=== PATIENT | female | born 1930 | race Caucasian/White ===

== ENCOUNTER → 2016-10-20 | Outpatient (REF) | payer MEDICARE ==
[~2016-10-20] MED LIST: /WARF2TA PO; CALC600T7 PO; FERR325T3 PO; LANO0.252 OR; MULTTAB4 PO; OSTETAB3 PO; PERCOCET PO; SODIGEL; TYLE325T5 PO; [UNRECOGNIZED DRUG - REMARK] OU
[2016-10-20 18:20] LABS: INR 1.69
[2016-10-20 19:53] LABS: DIGOXIN LEVEL 0.6 NG/ML (0.5-2.0)
== END ==
LOC: M LAB REF 16:45
PROVIDERS: ATTEND Internal Medicine
DX: I48.2 Chronic atrial fibrillation (principal); B18.2 Chronic viral hepatitis C; K74.60 Unspecified cirrhosis of liver; Z79.01 Long term (current) use of anticoagulants

== ENCOUNTER → 2017-04-27 | Outpatient (REF) | payer MEDICARE ==
[2017-04-27 19:06] LABS: DIGOXIN LEVEL 0.5 NG/ML (0.5-2.0)
[2017-04-27 19:25] LABS: INR 1.18
== END ==
LOC: M LAB REF 17:13
PROVIDERS: ATTEND Internal Medicine
DX: K74.60 Unspecified cirrhosis of liver (principal)

== ENCOUNTER → 2017-05-25 | Outpatient (REF) | payer MEDICARE | LOC: M LAB REF 12:29 | PROVIDERS: ATTEND Surgery | DX: I87.311 Chronic venous hypertension (idiopathic) with ulcer of right lower extremity (principal); L97.812 Non-pressure chronic ulcer of other part of right lower leg with fat layer exposed; B95.61 Methicillin susceptible Staphylococcus aureus infection as the cause of diseases classified elsewhere ==

== ENCOUNTER → 2017-05-25 | Outpatient (CLI) | payer MEDICARE | LOC: M LAB 11:14 | PROVIDERS: ATTEND Internal Medicine | DX: E03.9 Hypothyroidism, unspecified (principal) ==

== ENCOUNTER → 2017-06-09 | Outpatient (REF) | payer MEDICARE ==
[2017-06-09 16:52] LABS: MEAN CORPUSCULAR HEMOGLOBIN 30.9 pg (27.0-33.0); MEAN CORPUSCULAR VOLUME 93.6 fl (80.0-96.0); PLATELET COUNT, AUTOMATED 166 10^3/uL (150-450); RED CELL DISTRIBUTION WIDTH 14.7 % (11.5-14.5); WHITE BLOOD COUNT 4.8 10^3/uL (4.0-10.0)
[2017-06-09 18:22] LABS: ALBUMIN 3.1 GM/DL (3.2-5.2); ALKALINE PHOSPHATASE 123 U/L (45-117); ALT/SGPT 74 U/L (12-78); ANION GAP 6 MEQ/L (8-16); AST/SGOT 102 U/L (7-37); BILIRUBIN,TOTAL 0.7 MG/DL (0.2-1.0); BLOOD UREA NITROGEN 15 MG/DL (7-18); CALCIUM LEVEL 8.3 MG/DL (8.8-10.2); CARBON DIOXIDE LEVEL 29 MEQ/L (21-32); CHLORIDE LEVEL 105 MEQ/L (98-107); CREATININE FOR GFR 0.27 MG/DL (0.55-1.02); GLOMERULAR FILTRATION RATE > 60.0 (>32); GLUCOSE, FASTING 109 MG/DL (83-110); POTASSIUM SERUM 4.1 MEQ/L (3.5-5.1); SODIUM LEVEL 140 MEQ/L (136-145); TOTAL PROTEIN 6.2 GM/DL (6.4-8.2)
[2017-06-09 19:01] LABS: ERYTHROCYTE SEDIMENTATION RATE 1 mm/hr (0-42)
== END ==
LOC: M LAB REF 16:16
PROVIDERS: ATTEND Surgery
DX: I87.311 Chronic venous hypertension (idiopathic) with ulcer of right lower extremity (principal); L97.812 Non-pressure chronic ulcer of other part of right lower leg with fat layer exposed

== ENCOUNTER → 2017-07-06 | Outpatient (REF) | payer MEDICARE ==
[2017-07-06 18:23] LABS: BLOOD UREA NITROGEN 12 MG/DL (7-18)
[2017-07-06 18:23] LABS: CREATININE FOR GFR 0.19 MG/DL (0.55-1.02); GLOMERULAR FILTRATION RATE > 60.0 (>32)
== END ==
LOC: M LAB REF 16:37
DX: L97.812 Non-pressure chronic ulcer of other part of right lower leg with fat layer exposed (principal)
CPT/HCPCS: 82565

== ENCOUNTER → 2017-07-13 | Outpatient (CLI) | payer MEDICARE ==
[~2017-07-13] MED LIST changes: -/WARF2TA PO; -CALC600T7 PO; -FERR325T3 PO; -LANO0.252 OR; -MULTTAB4 PO; -OSTETAB3 PO; -PERCOCET PO; +PROHANCE 279.3MG/ML 5ML VIAL (A9576) As Ordered; -SODIGEL; -TYLE325T5 PO; -[UNRECOGNIZED DRUG - REMARK] OU
== END ==
LOC: M RAD 11:35
DX: I87.311 Chronic venous hypertension (idiopathic) with ulcer of right lower extremity (principal); L97.812 Non-pressure chronic ulcer of other part of right lower leg with fat layer exposed; L03.115 Cellulitis of right lower limb; R93.8 Abnormal findings on diagnostic imaging of other specified body structures
CPT/HCPCS: A9576

== ENCOUNTER → 2017-10-26 | Outpatient (REF) | payer MEDICARE ==
[2017-10-26 17:25] LABS: PROTHROMBIN TIME 14.4 SECONDS (12.4-14.5)
[2017-10-26 17:26] LABS: PARTIAL THROMBOPLASTIN TIME 28.3 SECONDS (26.8-37.9)
[2017-10-26 17:51] LABS: DIGOXIN LEVEL 0.6 NG/ML (0.5-2.0)
[2017-10-27 10:40] LABS: ALPHA FETOPROTEIN TUMOR QUANT 10.3 NG/ML (<8.1)
== END ==
LOC: M LAB REF 16:43
DX: I48.2 Chronic atrial fibrillation (principal); K74.60 Unspecified cirrhosis of liver; B18.2 Chronic viral hepatitis C
CPT/HCPCS: 80162

== ENCOUNTER → 2017-11-16 | Outpatient (CLI) | payer MEDICARE | LOC: M RAD 10:28 | DX: B18.2 Chronic viral hepatitis C (principal); K74.60 Unspecified cirrhosis of liver | CPT/HCPCS: 76705 ==

== ENCOUNTER → 2018-05-10 | Outpatient (REF) | payer MEDICARE ==
[2018-05-10 17:47] LABS: INR 1.02; PROTHROMBIN TIME 13.5 SECONDS (12.1-14.4)
[2018-05-10 17:48] LABS: PARTIAL THROMBOPLASTIN TIME 28.2 SECONDS (25.4-37.6)
[2018-05-10 18:04] LABS: DIGOXIN LEVEL 0.7 NG/ML (0.5-2.0)
[2018-05-11 09:39] LABS: ALPHA FETOPROTEIN TUMOR QUANT 12.7 NG/ML (<8.1)
== END ==
LOC: M LAB REF 16:48
DX: I48.2 Chronic atrial fibrillation (principal); K74.60 Unspecified cirrhosis of liver
CPT/HCPCS: 80162

== ENCOUNTER → 2018-05-25 | Outpatient (REF) | payer MEDICARE ==
[~2018-05-25] MED LIST changes: +/WARF2TA PO; +CALC600T7 PO; +FERR325T3 PO; +LANO0.252 OR; +MULTTAB4 PO; +OSTETAB3 PO; +PERCOCET PO; -PROHANCE 279.3MG/ML 5ML VIAL (A9576) As Ordered; +SODIGEL; +TYLE325T5 PO; +[UNRECOGNIZED DRUG - REMARK] OU
== END ==
LOC: M LAB REF 19:18
PROVIDERS: ATTEND Surgery
DX: L89.324 Pressure ulcer of left buttock, stage 4 (principal)

== ENCOUNTER → 2018-07-01 | Outpatient (REF) | payer MEDICARE ==
[2018-07-01 16:48] LABS: ALBUMIN 2.2 GM/DL (3.2-5.2); ALT/SGPT 23 U/L (12-78); BILIRUBIN,DIRECT 0.3 MG/DL (0.0-0.2); BILIRUBIN,TOTAL 0.4 MG/DL (0.2-1.0); BLOOD UREA NITROGEN 15 MG/DL (7-18); C REACTIVE PROTEIN QUANTITATIV 1.23 MG/DL (0.00-0.30); CALCIUM LEVEL 7.6 MG/DL (8.8-10.2); CARBON DIOXIDE LEVEL 28 MEQ/L (21-32); CHLORIDE LEVEL 104 MEQ/L (98-107); CREATININE FOR GFR 0.17 MG/DL (0.55-1.30); GLOMERULAR FILTRATION RATE > 60.0 (>32); GLUCOSE, FASTING 101 MG/DL (70-100); POTASSIUM SERUM 4.1 MEQ/L (3.5-5.1); SODIUM LEVEL 137 MEQ/L (136-145); TOTAL PROTEIN 5.1 GM/DL (6.4-8.2)
[2018-07-01 16:58] LABS: BASO % 0.4 % (0.0-1.0); EOS # 0.1 10^3/uL (0.0-0.50); EOS % 0.9 % (0.0-3.0); HEMATOCRIT 37.6 % (36.0-47.0); HEMOGLOBIN 12.1 g/dl (12.0-15.5); LYMPH # 1.4 10^3/uL (1.5-4.5); LYMPH % 17.9 % (24.0-44.0); MEAN CORPUSCULAR HEMOGLOBIN 28.7 pg (27.0-33.0); MEAN CORPUSCULAR HGB CONC 32.2 g/dl (32.0-36.5); MEAN CORPUSCULAR VOLUME 89.3 fl (80.0-96.0); MONO # 0.7 10^3/uL (0.0-0.8); NEUTROPHILS # 5.5 10^3/uL (1.8-7.7); NEUTROPHILS % 71.4 % (36.0-66.0); PLATELET COUNT, AUTOMATED 280 10^3/uL (150-450); RED BLOOD COUNT 4.21 10^6/uL (4.00-5.40); WHITE BLOOD COUNT 7.7 10^3/uL (4.0-10.0)
[2018-07-01 18:20] LABS: ERYTHROCYTE SEDIMENTATION RATE 15 mm/hr (0-42)
== END ==
LOC: M LAB REF 16:14
PROVIDERS: ATTEND Internal Medicine
DX: R50.9 Fever, unspecified (principal)

== ENCOUNTER → 2018-07-02 | Outpatient (REF) | payer MEDICARE | LOC: M LAB REF 17:08 | PROVIDERS: ATTEND Internal Medicine | DX: R50.9 Fever, unspecified (principal) ==

== ENCOUNTER → 2018-07-05 | Outpatient (REF) | payer MEDICARE | LOC: M LAB REF 18:31 | PROVIDERS: ATTEND Surgery | DX: L89.514 Pressure ulcer of right ankle, stage 4 (principal) | CPT/HCPCS: 11042; 11044; 11047; 80053; 85025; 85652; 86140; 87040; 87070; 87077; 87186; G0463 ==

== ENCOUNTER → 2018-07-05 | Outpatient (REF) | payer MEDICARE ==
[2018-07-05 17:17] LABS: BASO % 0.4 % (0.0-1.0); EOS # 0.1 10^3/uL (0.0-0.50); EOS % 1.3 % (0.0-3.0); HEMATOCRIT 41.2 % (36.0-47.0); HEMOGLOBIN 13.2 g/dl (12.0-15.5); LYMPH # 1.5 10^3/uL (1.5-4.5); LYMPH % 21.4 % (24.0-44.0); MEAN CORPUSCULAR HEMOGLOBIN 28.8 pg (27.0-33.0); MONO # 0.6 10^3/uL (0.0-0.8); MONO % 8.5 % (0.0-5.0); NEUTROPHILS # 4.8 10^3/uL (1.8-7.7); NEUTROPHILS % 68.1 % (36.0-66.0); PLATELET COUNT, AUTOMATED 313 10^3/uL (150-450); RED BLOOD COUNT 4.58 10^6/uL (4.00-5.40); WHITE BLOOD COUNT 7.1 10^3/uL (4.0-10.0)
[2018-07-05 17:19] LABS: C REACTIVE PROTEIN QUANTITATIV 1.08 MG/DL (0.00-0.30)
[2018-07-05 18:02] LABS: ERYTHROCYTE SEDIMENTATION RATE 15 mm/hr (0-42)
[2018-07-06 13:54] LABS: ALBUMIN 2.5 GM/DL (3.2-5.2); ALT/SGPT 25 U/L (12-78); BILIRUBIN,TOTAL 0.6 MG/DL (0.2-1.0); BLOOD UREA NITROGEN 11 MG/DL (7-18); CALCIUM LEVEL 8.2 MG/DL (8.8-10.2); CARBON DIOXIDE LEVEL 26 MEQ/L (21-32); CHLORIDE LEVEL 103 MEQ/L (98-107); CREATININE FOR GFR 0.18 MG/DL (0.55-1.30); GLOMERULAR FILTRATION RATE > 60.0 (>32); GLUCOSE, FASTING 84 MG/DL (70-100); POTASSIUM SERUM 4.1 MEQ/L (3.5-5.1); SODIUM LEVEL 139 MEQ/L (136-145); TOTAL PROTEIN 6.2 GM/DL (6.4-8.2)
== END ==
LOC: M SFHCPLAZ 14:13
PROVIDERS: ATTEND Internal Medicine Infectious Disease
DX: L89.514 Pressure ulcer of right ankle, stage 4 (principal)

== ENCOUNTER → 2018-07-12 | Outpatient (CLI) | payer MEDICARE ==
[~2018-07-12] MED LIST changes: +PROHANCE 279.3MG/ML 5ML VIAL (A9576) As Ordered ONE
--- NOTE | 2018-07-12 10:20 | REP ---
MRI RIGHT FOOT WITH AND WITHOUT CONTRAST: Multiple sequences obtained in the axial, coronal and sagittal planes, prior to and following the intravenous administration of 10 mL ProHance. There is low signal on T1 and high signal on T2 in the medial malleolus, distal fibula, talus, calcaneus, navicular, cuboid and lateral cuneiform bones. These areas demonstrate ill-defined enhancement following the intravenous administration of gadolinium. There appear to be adjacent skin ulcerations dorsolaterally. Findings are suspicious for osteomyelitis, although posttraumatic or arthritic changes could also cause this appearance. Similar findings are seen in the head of the 1st metatarsal. There is ill-defined soft tissue edema in the hind foot again predominantly dorsal laterally with ill-defined soft tissue enhancement compatible with cellulitis. No focal fluid collection, joint effusion or abscess is seen. IMPRESSION: Abnormal signal enhancement of the distal fibula, medial malleolus, talus, calcaneus, navicular, cuboid, lateral cuneiform and head of 1st metatarsal. Findings are most consistent with osteomyelitis, although posttraumatic or arthritic change could also contribute to this appearance. There are findings compatible with cellulitis predominantly in the hind foot dorsal laterally. No abscess is seen. Electronically Signed by Felton Pantoja MD 07/12/2018 04:46 P
== END ==
LOC: M RAD 07:05
PROVIDERS: ATTEND Internal Medicine Infectious Disease
DX: L89.514 Pressure ulcer of right ankle, stage 4 (principal)
CPT/HCPCS: 11042; 11043; 11044; 15271; 73720; A9576; Q4186

== ENCOUNTER → 2018-07-20 | Outpatient (REF) | payer MEDICARE ==
[~2018-07-20] MED LIST changes: -PROHANCE 279.3MG/ML 5ML VIAL (A9576) As Ordered ONE
[2018-07-20 19:06] LABS: BASO % 0.9 % (0.0-1.0); EOS # 0.2 10^3/uL (0.0-0.50); EOS % 3.5 % (0.0-3.0); HEMATOCRIT 37.5 % (36.0-47.0); LYMPH # 1.9 10^3/uL (1.5-4.5); LYMPH % 40.7 % (24.0-44.0); MEAN CORPUSCULAR HEMOGLOBIN 28.4 pg (27.0-33.0); MEAN CORPUSCULAR VOLUME 88.9 fl (80.0-96.0); MONO # 0.5 10^3/uL (0.0-0.8); MONO % 9.8 % (0.0-5.0); NEUTROPHILS # 2.1 10^3/uL (1.8-7.7); NEUTROPHILS % 44.9 % (36.0-66.0); PLATELET COUNT, AUTOMATED 250 10^3/uL (150-450); RED BLOOD COUNT 4.22 10^6/uL (4.00-5.40); WHITE BLOOD COUNT 4.6 10^3/uL (4.0-10.0)
[2018-07-20 19:37] LABS: ERYTHROCYTE SEDIMENTATION RATE 8 mm/hr (0-42)
== END ==
LOC: M LAB REF 18:15
PROVIDERS: ATTEND Surgery
DX: L89.324 Pressure ulcer of left buttock, stage 4 (principal)

== ENCOUNTER → 2018-08-02 | Outpatient (CLI) | payer MEDICARE | LOC: M RAD 10:37 | PROVIDERS: ATTEND Internal Medicine Infectious Disease | DX: R50.9 Fever, unspecified (principal); L89.152 Pressure ulcer of sacral region, stage 2; Z53.8 Procedure and treatment not carried out for other reasons ==

== ENCOUNTER → 2018-08-20 | Outpatient (REF) | payer MEDICARE ==
[2018-08-20 18:51] LABS: HEMATOCRIT 37.3 % (36.0-47.0); HEMOGLOBIN 11.7 g/dl (12.0-15.5); MEAN CORPUSCULAR HEMOGLOBIN 27.9 pg (27.0-33.0); MEAN CORPUSCULAR HGB CONC 31.4 g/dl (32.0-36.5); PLATELET COUNT, AUTOMATED 259 10^3/uL (150-450); RED BLOOD COUNT 4.19 10^6/uL (4.00-5.40); WHITE BLOOD COUNT 5.1 10^3/uL (4.0-10.0)
[2018-08-20 19:20] LABS: BLOOD UREA NITROGEN 16 MG/DL (7-18); C REACTIVE PROTEIN QUANTITATIV < 0.30 MG/DL (0.00-0.30); CALCIUM LEVEL 7.7 MG/DL (8.8-10.2); CARBON DIOXIDE LEVEL 28 MEQ/L (21-32); CHLORIDE LEVEL 105 MEQ/L (98-107); CREATININE FOR GFR 0.24 MG/DL (0.55-1.30); GLOMERULAR FILTRATION RATE > 60.0 (>32); GLUCOSE, FASTING 99 MG/DL (70-100); POTASSIUM SERUM 3.9 MEQ/L (3.5-5.1); SODIUM LEVEL 140 MEQ/L (136-145)
[2018-08-20 19:23] LABS: ERYTHROCYTE SEDIMENTATION RATE 17 mm/hr (0-42)
== END ==
LOC: M SFHCPLAZ 18:34
PROVIDERS: ATTEND Surgery
DX: L89.324 Pressure ulcer of left buttock, stage 4 (principal)

== ENCOUNTER → 2019-02-21 | Outpatient (REF) | payer MEDICARE ==
[~2019-02-21] MED LIST changes: -/WARF2TA PO; +COUM1TAB16 PO; +OXYC1TAB23 PO; -PERCOCET PO; +REFR1DRO8 OU; -[UNRECOGNIZED DRUG - REMARK] OU
[2019-02-21 18:05] LABS: INR 1.2; PROTHROMBIN TIME 14.9 SECONDS (11.8-14.0)
[2019-02-21 18:06] LABS: PARTIAL THROMBOPLASTIN TIME 28.4 SECONDS (25.0-38.4)
== END ==
LOC: M LAB REF 17:29
PROVIDERS: ATTEND Internal Medicine
DX: I48.2 Chronic atrial fibrillation (principal); K74.60 Unspecified cirrhosis of liver

== ENCOUNTER → 2019-04-18 | Outpatient (REF) | payer MEDICARE | LOC: M LAB REF 13:01 | PROVIDERS: ATTEND Surgery | DX: L81.9 Disorder of pigmentation, unspecified (principal); D23.30 Other benign neoplasm of skin of unspecified part of face | CPT/HCPCS: 15271; 15272; 88305; Q4103 ==